=== PATIENT | female | born 1960 | race Caucasian/White ===

== ENCOUNTER 2022-01-28 08:09 | Day surgery (SDC) | payer MEDICAID, MEDICARE ==
[2022-01-28] MEDS ORDERED: Lactated Ringers 1,000 ML IV ONE (08:10)
[2022-01-28] MEDS ORDERED: Rocuronium 100 MG/10 ML MDV IV ONE (08:10)
[2022-01-28] MEDS ORDERED: Dexamethasone 4 MG/ML 5 ML MDV IVPUSH ONE (08:10)
[2022-01-28] MEDS ORDERED: fentaNYL 100 MCG/2 ML SDV IV ONE (08:10)
[2022-01-28] MEDS ORDERED: Ondansetron 4 MG/2 ML SDV IVPUSH ONE (08:10)
[2022-01-28] MEDS ORDERED: Ketorolac 30 MG/ML SDV IVPUSH ONE (08:10)
[2022-01-28] MEDS ORDERED: diphenhydrAMINE 50 MG/ML SDV IVPUSH ONE (08:10)
[2022-01-28] MEDS ORDERED: Midazolam 1 MG/ML 2 ML SDV IV ONE (08:10)
[2022-01-28] MEDS ORDERED: Labetalol 100 MG/20 ML MDV IV ONE (08:10)
[2022-01-28] MEDS ORDERED: Propofol 200 MG/20 ML SDV IV ONE (08:10)
[2022-01-28] MEDS ORDERED: Succinylcholine 200 MG/10 ML MDV IV ONE (08:10)
[2022-01-28] MEDS ORDERED: Sugammadex Sodium 200 MG/2 ML VIAL IV ONE (08:10)
[2022-01-28] MEDS ORDERED: Sodium Chloride 0.9% 10 ML Syringe FLUSH PRN (08:30)
[2022-01-28] MEDS ORDERED: Lactated Ringers 1,000 ML IV SCH (08:30)
[2022-01-28] MEDS ORDERED: Bupivacaine 0.5%/EPINEPHrine 1:200,000 10 ML SDV INJECT ONE (09:40)
[2022-01-28] MEDS ORDERED: ceFAZolin 2 GM in Premix Bag 1 BAG IV ONE (10:00)
[2022-01-28] MEDS ORDERED: Acetaminophen/HYDROcodone 325-7.5 MG Tab PO ONE (12:41)
== END 2022-01-28 14:00 | disposition home or self-care (01) ==
LOC: FB.SDS 08:09
PROVIDERS: ATTEND Surgery
DX: K80.10 Calculus of gallbladder with chronic cholecystitis without obstruction (principal); I10 Essential (primary) hypertension; K21.9 Gastro-esophageal reflux disease without esophagitis; G89.29 Other chronic pain; F17.210 Nicotine dependence, cigarettes, uncomplicated; E66.01 Morbid (severe) obesity due to excess calories; F32.9 Major depressive disorder, single episode, unspecified; Z79.899 Other long term (current) drug therapy; Z98.890 Other specified postprocedural states; Z88.2 Allergy status to sulfonamides; Z68.37 Body mass index [BMI] 37.0-37.9, adult
CPT/HCPCS: 00790; 47562; 88304; A9270; J0330; J0690; J1100; J1200; J1885; J2250; J2405; J2704; J3010; J3490; J7120